=== PATIENT | female | born 1940 | race Hispanic/Latino ===

== ENCOUNTER → 2017-05-14 | Outpatient (CLI) | payer MEDICARE ==
--- NOTE | 2017-05-14 13:30 | Diagnostic Imaging Report ---
PROCEDURE:ABDOMINAL ULTRASOUND COMPARISON:None. INDICATIONS:Abdominal pain TECHNIQUE: Srinivasan scale color Doppler ultrasound abdomen FINDINGS: Imaged segments of the inferior vena cava and abdominal aorta are normal. Normal pancreas. The tail is obscured by bowel gas. Right liver span 16.4 cm. Mildly increased liver echogenicity with a smooth margin. Portal vein diameter: 1.2 cm; Normal flow direction. Normal gallbladder. Wall thickness: Common bile duct: 0.5 cm Right kidney: 10.8 x 4 x 5.7 cm. Left kidney: 11 x 3.9 x 4.4 cm. Both kidneys are normal. Splenic length: 8.6 cm. No ascites. CONCLUSION: Mild hepatomegaly with steatosis. Dictated by: Gregg Kelly M.D. on 05/14/2017 at 13:30 Electronically approved by: Gregg Kelly M.D. on 05/14/2017 at 13:30
== END ==
LOC: US 11:54
PROVIDERS: ATTEND Family Medicine
DX: R10.9 Unspecified abdominal pain (principal)
CPT/HCPCS: 76700

== ENCOUNTER → 2017-05-29 | Outpatient (CLI) | payer MEDICARE ==
[~2017-05-29] MED LIST: SINCALIDE 3 MCG/VIAL INJ ONE
--- NOTE | 2017-05-29 17:22 | Diagnostic Imaging Report ---
Hepatobiliary Scan with Gallbladder Ejection Fraction Clinical information: 76 F with abdominal pain Report: Following intravenous administration of 7 millicuries of Tc-99m mebrofenin, dynamic images of the abdomen in the anterior projection were obtained through 55 minutes. Sincalide (CCK analog) 1.8 micrograms was administered intravenously over 30 minutes with additional imaging for determination of gallbladder ejection fraction. Perfusion to the liver is normal. Extraction of tracer from the blood pool by the liver parenchyma is normal. Tracer is seen promptly within the biliary tract. The gallbladder begins to fill by 30 minutes post-injection of tracer and fills adequately. Tracer is seen in the small bowel by 22 minutes. The gallbladder ejection fraction with administration of sincalide is 88% (normal greater than 40%). Impression: 1. Filling of the gallbladder excludes the diagnosis of acute cystic duct obstruction/acute cholecystitis. 2. Normal gallbladder ejection fraction of 88% does not support the clinical diagnosis of chronic cholecystitis/gallbladder dyskinesia. Signed by: Dr. Christiana Elizabeth M.D. on 05/29/2017 5:18 PM
== END ==
LOC: NM 12:14
PROVIDERS: ATTEND Family Medicine
DX: R10.9 Unspecified abdominal pain (principal)
CPT/HCPCS: 78227; A9537; J2805

== ENCOUNTER → 2021-03-20 | Outpatient (CLI) | payer MEDICARE ==
[~2021-03-20] MED LIST changes: +AZITHROMYCIN250 MG PO; +PREDNISONE50 MG PO; -SINCALIDE 3 MCG/VIAL INJ ONE
== END ==
LOC: RAD 15:11
PROVIDERS: ATTEND Family Medicine
DX: R05.9 Cough, unspecified (principal)
CPT/HCPCS: 71046

== ENCOUNTER 2021-03-23 10:13 | Emergency (ER) | payer MEDICARE ==
[~2021-03-23] VITALS: Ht 167.6 cm; Wt 81.6 kg
[2021-03-23 11:09] LABS: HEMATOCRIT 38.9 % (34.2-44.1); HEMOGLOBIN 12.4 g/dL (12.0-16.0); LYMPHOCYTES # (AUTO) 0.9 (1.0-3.2); LYMPHOCYTES % 13.7 % (18.0-39.1); MEAN CORPUSCULAR HEMOGLOBIN 29.7 pg (28-32); MEAN CORPUSCULAR HGB CONC 31.9 g/dL (31-35); MEAN CORPUSCULAR VOLUME 93.1 fL (81-99); MONOCYTES # (AUTO) 0.5 (0.2-0.8); MONOCYTES % 7.2 % (4.4-11.3); NEUTROPHILS # (AUTO) 5.1 (2.1-6.9); NEUTROPHILS % 78.9 % (38.7-80.0); PLATELET COUNT 162 x10e3/uL (140-360); RED BLOOD COUNT 4.18 x10e6/uL (3.6-5.1); RED CELL DISTRIBUTION WIDTH 13.5 % (11.7-14.4)
[2021-03-23 11:12] LABS: CLARITY,URINE CLEAR (CLEAR); COLOR,URINE YELLOW (YELLOW); KETONES,URINE NEGATIVE (NEGATIVE); LEUKOCYTE ESTERASE ,URINE NEGATIVE (NEGATIVE); NITRITE,URINE NEGATIVE (NEGATIVE); PROTEIN,URINE DIPSTICK 2+ (NEGATIVE); URINE UROBILINOGEN 0.2 mg/dL (0.2 - 1)
[2021-03-23 11:30] LABS: BACTERIA,URINE MODERATE /HPF; EPITHELIAL CELLS,URINE MANY /LPF
[2021-03-23 11:32] LABS: ALBUMIN 3.3 g/dL (3.5-5.0); ALBUMIN/GLOBULIN RATIO 0.7 (0.8-2.0); ANION GAP 16.8 mmol/L (8-16); CALCIUM 9.2 mg/dL (8.4-10.2); CREATININE, SERUM 1.81 mg/dL (0.57-1.11); POTASSIUM 3.8 mmol/L (3.5-5.1)
[2021-03-23] MEDS ORDERED: PREDNISONE50 MG PO (13:27)
[2021-03-23] MEDS ORDERED: AZITHROMYCIN250 MG PO (13:27)
== END 2021-03-23 16:06 | disposition home or self-care (01) ==
LOC: ER 10:30
DX: U07.1 COVID-19 (principal); R05.9 Cough, unspecified; R06.00 Dyspnea, unspecified; K76.0 Fatty (change of) liver, not elsewhere classified; K57.90 Diverticulosis of intestine, part unspecified, without perforation or abscess without bleeding
CPT/HCPCS: 36415; 74176; 80053; 81001; 83690; 84484; 85025; 93005; 99284; U0002